=== PATIENT | female | born 1965 | race Caucasian/White ===

== ENCOUNTER 2017-01-11 04:39 | Emergency (ER) | payer OTHER ==
[~2017-01-11] VITALS: Ht 157.5 cm; Wt 98.5 kg
[2017-01-11 04:43] VITALS: Ht 157.5 cm; Wt 98.5 kg
[2017-01-11] MEDS ORDERED: KETOROLAC 30 MG INJ IV STA (04:53)
[2017-01-11] MEDS ORDERED: SODIUM CHLORIDE 0.9% 1L BAG IV* STA (04:53)
[2017-01-11] MEDS ORDERED: ONDANSETRON 4 MG INJ IV STA (04:53)
[2017-01-11] MEDS ORDERED: morphine 4 MG/ML VIAL IV STA (05:13)
[2017-01-11 05:23] LABS: ADD SCAN DIFF NO
[2017-01-11] MEDS ORDERED: CEFTRIAXONE 1 GM/50 ML (PMX) 50 ML IVPB ONE (05:30)
[2017-01-11 05:34] LABS: BASOPHILS % 0.3 % (0.0-2.0); EOSINOPHILS # 0.1 10^3/ul (0.0-0.5); EOSINOPHILS % 1.2 % (0.0-7.0); HEMATOCRIT 36.2 % (37.0-47.0); HEMOGLOBIN 12.3 g/dl (12.0-16.0); LYMPHOCYTES # 1.2 10^3/ul (0.8-2.9); MEAN CORPUSCULAR VOLUME 85.4 fl (82.0-101.0); MEAN PLATELET VOLUME 9.6 fl (7.4-10.4); MONOCYTE # 0.4 10^3/ul (0.3-0.9); MONOCYTES % 3.7 % (0.0-11.0); NEUTROPHIL # 9.3 10^3/ul (1.6-7.5); NEUTROPHILS % 83.2 % (39.0-77.0); PLATELET COUNT 334 10^3/UL (140-415); RED BLOOD COUNT 4.24 10^6/ul (4.20-5.40); RED CELL DISTRIBUTION WIDTH 13.1 % (11.5-14.5); WHITE BLOOD COUNT 11.1 10^3/ul (4.8-10.8)
--- NOTE | 2017-01-11 05:40 | RADRPT ---
PROCEDURE: XR Chest. CLINICAL INDICATION: Chest pain TECHNIQUE: A single AP view of the chest was obtained. COMPARISON: None. FINDINGS: No focal airspace opacification, pleural effusion or pneumothorax is seen. The cardiomediastinal si lhouette is within normal limits for size. The osseous structures are unremarkable. IMPRESSION: No radiographic evidence of acute cardiopulmonary disease. RPTAT: HH .Jennifer Epsino MD, MD Date Time Electronically viewed and signed by .Jennifer Espino MD, on 01/11/2017 05:40 .G/
[2017-01-11 05:46] LABS: CHLORIDE 100 mmol/L (97-110)
[2017-01-11 05:47] LABS: INR 0.97; PARTIAL THROMBOPLASTIN TIME 29.9 Sec (25.0-35.0); PROTIME 12.9 Sec (12.2-14.2); SODIUM 135 mmol/L (135-144)
--- NOTE | 2017-01-11 05:47 | RADRPT ---
PROCEDURE: CT Abdomen and Pelvis without contrast. CLINICAL INDICATION: Left flank pain. TECHNIQUE: Routine axial tomographic images of the abdomen and pelvis were obtained from the domes the diaphragm to the symphysis pubis. The patient was scanned withoutoral or intravenous contrast. Coronal and sagittal reformatted images were obtained from the axial source images. Images were re viewed on a high-resolution PACS workstation. One or more of the following dose reduction techniques were used: Automated exposure control, Adjust ment of the mA and/or kV according to patient size, and/or Use of iterative reconstruction technique . The total exam CTDI equals 22.90 mGy and the total exam DLP equals 1292.38 mGy-cm. COMPARISON: None. FINDINGS: The visualized portions of the lung bases demonstrate minimal bilateral basilar atelectasis. Eval uation of the intra-abdominal solid organs is limited on this noncontrast examination. The liver ap pears normal in size. There is no intra or extrahepatic biliary dilatation. The gallbladder is unr emarkable by CT criteria. The spleen demonstrate small parenchymal calcifications. The pancreas an d adrenal glands are unremarkable. The kidneys are symmetric in size. No renal, ureteral, or bladder calculi are identified. There is very mild right perinephric fat stranding. The urinary bladder is grossly unremarkable. The bowel demonstrates normal course and caliber. There is no evidence of bowel obstruction. The ap pendix is unremarkable. Diverticula are seen throughout the colon. The uterus and adnexa are grossl y unremarkable. No intraperitoneal free fluid, free air or abscess is identified. The aorta is norm al in caliber. No retroperitoneal, mesenteric, or inguinal lymphadenopathy is identified. The osseous structures demonstrate mild multilevel facet arthropathy. No significant subcutaneous soft tissue abnormalities are seen. IMPRESSION: 1. Limited, noncontrast CT of the abdomen and pelvis. There is minimal right perinephric fat strand ing. Findings are nonspecific, but can be associated with ascending urinary tract infection. 2. Colonic diverticulosis. No CT evidence of diverticulitis. RPTAT: HH .Jennifer Espino MD, MD Date Time Electronically viewed and signed by .Jennifer Espino MD, on 01/11/2017 05:47 .[place]
[2017-01-11 05:49] LABS: ANION GAP 15 (8-16); CARBON DIOXIDE 24 mmol/L (21-31); CREATININE 0.59 mg/dl (0.44-1.00)
[2017-01-11 05:50] LABS: ALANINE AMINOTRANSFERASE 26 IU/L (13-69); ALBUMIN/GLOBULIN RATIO 1.05; ALKALINE PHOSPHATASE 127 IU/L (42-121); ASPARTATE AMINO TRANSFERASE 19 IU/L (15-46); BILIRUBIN,INDIRECT 0.5 mg/dl (0-1.1); BILIRUBIN,TOTAL 0.5 mg/dl (0.2-1.3); BLOOD UREA NITROGEN 12 mg/dl (7-20); CALCIUM 8.9 mg/dl (8.4-10.2); GLUCOSE 271 mg/dl (70-220); TOTAL PROTEIN 7.8 g/dl (6.1-8.1)
--- NOTE | 2017-01-11 06:01 | ERD ---
ER Documentation Chief Complaint Date/Time DATE: 01/11/17 TIME: 05:57 Chief Complaint lower abd pain radaiting to back x 2 days HPI This is a 51-year-old female who presents to the emergency room for evaluation of lower abdominal pain and back pain for the past 2 days. She also states that she has had a fever. She localizes back pain to the left portion of her lower back. She describes as achy pain worse with urination. The patient states that she has had this pain before and was diagnosed with kidney stones in the past. This patient states that she is also had the chills and body aches. She has taken Advil for this without relief and came to the emergency room for further evaluation. ROS All systems reviewed and are negative except as per history of present illness. Allergies Allergies: Coded Allergies: No Known Allergy (Unverified , 01/11/17) PMhx/Soc History of Surgery: Yes (eye surgery) Anesthesia Reaction: No Hx Cardiac Disorders: Yes (htn) Hx Miscellaneous Medical Probl: Yes (diabetes) Hx Alcohol Use: No Hx Substance Use: No Hx Tobacco Use: No Smoking Status: Unknown if ever smoked Physical Exam Vitals Vital Signs Date Time Temp Pulse Resp B/P Pulse Ox O2 Delivery O2 Flow Rate FiO2 01/11/17 05:35 Nasal Cannula 3 01/11/17 05:35 110 18 133/67 96 Room Air 01/11/17 04:43 103.9 115 20 152/69 96 Physical Exam INITIAL VITAL SIGNS: Reviewed by me GENERAL: The patient is well developed, warm to touch HEENT: Dry mucous membranes, pupils equal, round, and reactive to light. EOMI. There is no scleral icterus. NECK: C-spine is soft and supple, there is no meningismus. There is no cervical lymphadenopathy. LUNGS: Clear to auscultation bilaterally. There are no rales, wheezes or rhonchi. HEART: Tachycardic, no murmurs, clicks, rubs or gallops. ABDOMEN: Left-sided CVAT, suprapubic tenderness to palpation, otherwise soft, non-tender, non-distended. There are bowel sounds in all four quadrants. No rebound or guarding. EXTREMITIES: There is no peripheral cyanosis or edema. No focal swelling or erythema. NEUROLOGICAL: The patient moves all four extremities with 5/5 strength. Cranial nerves II - XII are intact. Normal gait. Alert and oriented SKIN: There is no apparent rash or petechiae. HEME/LYMPHATIC: There is no evidence of excessive bruising or lymphedema. PSYCHIATRIC: The patient does not appear anxious or depressed. Result Diagram: 01/11/17 0505 01/11/17 0505 Results 24 hrs Laboratory Tests Test 01/11/17 05:05 White Blood Count 11.110^3/ul Red Blood Count 4.2410^6/ul Hemoglobin 12.3g/dl Hematocrit 36.2% Mean Corpuscular Volume 85.4fl Mean Corpuscular Hemoglobin 29.0pg Mean Corpuscular Hemoglobin Concent 34.0g/dl Red Cell Distribution Width 13.1% Platelet Count 62827^3/UL Mean Platelet Volume 9.6fl Neutrophils % 83.2% Lymphocytes % 11.0% Monocytes % 3.7% Eosinophils % 1.2% Basophils % 0.3% Nucleated Red Blood Cells % 0.0/100WBC Neutrophils # 9.310^3/ul Lymphocytes # 1.210^3/ul Monocytes # 0.410^3/ul Eosinophils # 0.110^3/ul Basophils # 0.010^3/ul Nucleated Red Blood Cells # 0.010^3/ul Prothrombin Time 12.9Sec Prothrombin Time Ratio 1.0 INR International Normalized Ratio 0.97 Activated Partial Thromboplast Time 29.9Sec Sodium Level 135mmol/L Potassium Level 4.0mmol/L Chloride Level 100mmol/L Carbon Dioxide Level 24mmol/L Anion Gap 15 Blood Urea Nitrogen 12mg/dl Creatinine 0.59mg/dl Glucose Level 271mg/dl Lactic Acid Level 1.6mmol/L Calcium Level 8.9mg/dl Total Bilirubin 0.5mg/dl Direct Bilirubin 0.00mg/dl Indirect Bilirubin 0.5mg/dl Aspartate Amino Transf (AST/SGOT) 19IU/L Alanine Aminotransferase (ALT/SGPT) 26IU/L Alkaline Phosphatase 127IU/L Troponin I Pending Total Protein 7.8g/dl Albumin 4.0g/dl Globulin 3.80g/dl Albumin/Globulin Ratio 1.05 Current Medications Medications (Trade) Dose Ordered Sig/Doreen Route PRN Reason Start Time Stop Time Status Last Admin Dose Admin Sodium Chloride (NS) 3,050 ml BOLUS OVER 2 HOURS STAT IV* 4/20/17 04:53 01/11/17 04:57 DC 01/11/17 05:07 Ketorolac Tromethamine (Toradol) 30 mg ONCE STAT IV 01/11/17 04:53 01/11/17 04:58 DC 01/11/17 05:07 Ondansetron HCl 4 mg 4 mg ONCE STAT IV 01/11/17 04:53 01/11/17 04:58 DC 01/11/17 05:07 Ceftriaxone Sodium (Rocephin) 50 ml @ 100 mls/hr ONCE ONCE IVPB 01/11/17 05:30 01/11/17 05:59 01/11/17 05:16 Morphine Sulfate (morphine) 4 mg ONCE STAT IV 01/11/17 05:13 01/11/17 05:14 DC 01/11/17 05:16 Procedures/MDM CT abdomen pelvis without: 1. Limited, noncontrast CT of the abdomen and pelvis. There is minimal right perinephric fat stranding. Findings are nonspecific, but can be associated with ascending urinary tract infection. 2. Colonic diverticulosis. No CT evidence of diverticulitis. Chest X-ray 1V Interpreted by me: Soft Tissue: No acute abnormalities Bones: No acute abnormalities Mediastinum/Cardiac Silhouette/Lungs: [No acute abnormalities] EKG: Rate/Rhythm: Sinus tachycardia QRS, ST, T-waves: [No changes consistent w/ acute ischemia] Impression: [No evidence of ischemia or arrhythmia] This 51-year-old female presents to the emergency room for evaluation of fever, chills, body aches, painful urination. When I evaluated this patient did know she had left-sided CVAT, and suprapubic tenderness to palpation on my examination. The patient was febrile tachycardic. She did have a septic workup which was initiated in the emergency room. No significant leukocytosis. CT of the abdomen and pelvis does not reveal any infected stone. This patient was given Toradol morphine for pain and fever. She was given 1 g Rocephin here in the emergency room. She is hemodynamically stable at this time , and upon my re-evaluation she states she is feeling much better. The patient is afebrile at this time and heart rate is now 99 bpm. The patient will be discharged home at this time with a prescription for ciprofloxacin to take over the course of the next 2 weeks for acute pyelonephritis Departure Diagnosis: Primary Impression: Acute pyelonephritis Condition: Stable REI DASH DO Jan 11, 2017 06:01
[2017-01-11] MEDS ORDERED: CIPR500T4 PO (06:03)
[2017-01-11] MEDS ORDERED: ONDA4TAB8 PO (06:04)
[2017-01-11 06:06] LABS: TROPONIN-I < 0.012 ng/ml (0.00-0.12)
[2017-01-11 06:38] LABS: ADD UMIC YES; URINE BILIRUBIN (Dip) NEGATIVE (NEGATIVE); URINE BLOOD (Dip) NEGATIVE (NEGATIVE); URINE COLOR LT. YELLOW (YELLOW); URINE KETONES (Dip) TRACE (NEGATIVE); URINE LEUKOCYTE ESTERASE (Dip) TRACE (NEGATIVE); URINE NITRITE (Dip) NEGATIVE (NEGATIVE); URINE TOTAL PROTEIN (Dip) NEGATIVE (NEGATIVE); URINE UROBILINOGEN (Dip) 0.2 E.U./dL (0.1-1.0)
[2017-01-11 07:19] LABS: BACTERIA,URINE FEW
[2017-01-11 07:21] VITALS: BP 103/49; PULSE 93; RESP 16; TEMP 98.9
== END 2017-01-11 07:35 | disposition home or self-care (01) ==
LOC: E/R 04:39
DX: N10 Acute pyelonephritis (principal); R50.9 Fever, unspecified; R10.32 Left lower quadrant pain; I10 Essential (primary) hypertension; E11.9 Type 2 diabetes mellitus without complications
CPT/HCPCS: 71010; 74176; 80053; 81001; 83605; 84484; 85025; 85610; 85730; 87040; 87086; 93005; J0696; J1885; J2270; J2405; J7030; 36415; 81003; 96374; 96375